=== PATIENT | male | born 1990 | race African-American/Black ===

== ENCOUNTER 2016-08-18 11:42 | Emergency (ER) | payer SELFPAY ==
[~2016-08-18] VITALS: Ht 167.6 cm; Wt 136.1 kg
[~2016-08-18 11:42] MED LIST: PRED50TA PO
[2016-08-18 11:55] VITALS: BP 160/89
[2016-08-18] MEDS ORDERED: HYDR-971 PO (12:21)
[2016-08-18] MEDS ORDERED: SULF1TAB24 PO (12:21)
--- NOTE | 2016-08-18 12:21 | PHYS DOC ---
Past Medical History Past Medical History: No Pertinent History Additional Past Medical Histor: obesity Past Surgical History: Other Additional Past Surgical Histo: plate left arm/wrist, mariluz in right leg Alcohol Use: Occasionally Drug Use: Marijuana Social History Narrative: PT REPORTS USING CODEINE Adult General Chief Complaint Chief Complaint: ABSCESS HPI HPI Patient is a 26 year old male presents emergency Department today with complaint of a painful, swollen area to his left buttock that is been progressive over the past 2-3 days. Patient states this is atraumatic in nature. Patient denies history of recurring skin infections. He denies antibiotic use within the past 90 days. Patient was here in April 2015 for an abscess. However, he denies recurrent skin infections. Patient denies fevers, chills, myalgias or arthralgias. Review of Systems Review of Systems Constitutional: Denies fever or chills [] Eyes: Denies change in visual acuity, redness, or eye pain [] HENT: Denies nasal congestion or sore throat [] Respiratory: Denies cough or shortness of breath [] Cardiovascular: No additional information not addressed in HPI [] GI: Denies abdominal pain, nausea, vomiting, bloody stools or diarrhea [] : Denies dysuria or hematuria [] Musculoskeletal: Denies back pain or joint pain [] Integument: Denies rash or skin lesions [] Neurologic: Denies headache, focal weakness or sensory changes [] Endocrine: Denies polyuria or polydipsia [] Current Medications Current Medications Current Medications Medications (Trade) Dose Ordered Sig/L[place]ty Start Time Stop Time Status Last Admin Dose Admin Acetaminophen/ Hydrocodone Bitart (Lortab 5/325) 1 tab 1X ONCE 08/18/16 12:30 08/18/16 12:31 DC 08/18/16 12:36 1 TAB Lidocaine/Sodium Bicarbonate (Buffered Lidocaine 1%) 20 ml 1X ONCE 08/18/16 12:30 08/18/16 12:31 DC 08/18/16 12:36 20 ML Allergies Allergies Allergies Coded Allergies Type Severity Reaction Last Updated Verified No Known Drug Allergies 05/19/15 No Physical Exam Physical Exam Constitutional: Well developed, well nourished, no acute distress, non-toxic appearance. [] HENT: Normocephalic, atraumatic, bilateral external ears normal, oropharynx moist, no oral exudates, nose normal. [] Eyes: PERRLA, EOMI, conjunctiva normal, no discharge. [] Neck: Normal range of motion, no tenderness, supple, no stridor. [] Cardiovascular:Heart rate regular rhythm, no murmur [] Lungs & Thorax: Bilateral breath sounds clear to auscultation [] Abdomen: Bowel sounds normal, soft, no tenderness, no masses, no pulsatile masses. [] Skin: Raised, erythematous, warm, indurated soft tissue at the superior aspect of the left gluteal cleft that extends to the presacral region. There is a small pinhole in the lower presacral region that is draining purulent material. The overlying skin shows hypertrophic hair follicles. This appearance is very consistent with a pilonidal abscess. Back: No tenderness, no CVA tenderness. [] Extremities: No tenderness, no cyanosis, no clubbing, ROM intact, no edema. [] Neurologic: Alert and oriented X 3, normal motor function, normal sensory function, no focal deficits noted. [] Psychologic: Affect normal, judgement normal, mood normal. [] Current Patient Data Vital Signs Vital Signs Date Time Temp Pulse Resp B/P Pulse Ox O2 Delivery O2 Flow Rate FiO2 08/18/16 12:36 Room Air 08/18/16 11:55 98.7 104 18 96 98.7 EKG EKG [] Radiology/Procedures Radiology/Procedures Procedure note: Abscess site was anesthetized with buffered 1% lidocaine. Site was prepped with Betadine solution. The abscess was incised with an 11 blade scalpel. There was immediate expression of copious amounts of foul-smelling mucopurulent material. The abscess was compressed until no further drainage was produced. Abscess was packed with quarter-inch iodoform packing. The abscess site was then dressed with a 4 x [address]. Patient tolerated the procedure well. Course & Med Decision Making Course & Med Decision Making Pertinent Labs and Imaging studies reviewed. (See chart for details) [] Dragon Disclaimer Dragon Disclaimer This electronic medical record was generated, in whole or in part, using a voice recognition dictation system. Departure Departure Impression: Primary Impression: Abscess Disposition: 01 HOME, SELF-CARE Condition: IMPROVED Referrals: NO PCP (PCP) Patient Instructions: Abscess, Care After, Abscess, [id number] Additional Instructions: 1. Take the packing out in 2 days while you are in the shower. Continue to keep the area covered with bandage material during periods of activity as it will continue to drain. 2. Take the medication as prescribed. 3. Review the discharge instructions provided for self-care and reasons to return to the emergency department. 4. Use the pamphlet provided for assistance in finding a primary care doctor in which you may follow up my Wednesday of this week for wound check. Scripts Hydrocodone/Apap 5-325 (Hickman 5-325 Tablet)1 Each Tablet1 Tab PO PRN Q6HRS PRN PAIN #10 TAB Prov:ANGEL MIGUEL 08/18/16 Sulfamethoxazole/Trimethoprim (Bactrim Ds Tablet)1 Each Tablet1 Each PO BID #20 TAB Prov:ANGEL MIGUEL 08/18/16 ANGEL MIGUEL August 18, 2016 12:21
[2016-08-18] MEDS ORDERED: LIDOCAINE 1% / SOD BICARB 8.4% 20 ML VIAL. IJ ONE (12:30)
[2016-08-18] MEDS ORDERED: HYDROcodone/APAP 5/325MG 1 TAB TABLET PO ONE (12:30)
== END 2016-08-18 13:10 | disposition home or self-care (01) ==
LOC: ER 11:42
DX: L05.01 Pilonidal cyst with abscess (principal); F12.10 Cannabis abuse, uncomplicated; E66.9 Obesity, unspecified; Z68.41 Body mass index [BMI] 40.0-44.9, adult
CPT/HCPCS: 10060; 10080; 99283-25

== ENCOUNTER 2017-05-14 07:03 | Emergency (ER) | payer SELFPAY ==
[2017-05-14] MEDS: LIDOCAINE WITH 8.4% SOD BICARB 3 ML DISP.SYRIN. INJ (07:23)
[2017-05-14] MEDS: HYDROcodone/APAP 5/325MG 1 TAB TABLET PO (07:24)
== END 2017-05-14 07:47 | disposition home or self-care (01) ==
LOC: ER 07:03
DX: L03.317 Cellulitis of buttock (principal); L02.31 Cutaneous abscess of buttock; E66.9 Obesity, unspecified; F12.10 Cannabis abuse, uncomplicated; Z68.41 Body mass index [BMI] 40.0-44.9, adult
CPT/HCPCS: 10060; 99283-25

== ENCOUNTER 2017-06-23 16:29 | Emergency (ER) | payer SELFPAY ==
[2017-06-23] MEDS: ACETAMINOPHEN 500 MG TABLET PO (17:45)
[2017-06-23] MEDS: ONDANSETRON ODT 4 MG TAB.RAPDIS. PO (17:46)
[2017-06-23 17:47] LABS: INFLUENZA A PATIENT NEGATIVE (NEGATIVE); INFLUENZA B PATIENT NEGATIVE (NEGATIVE); OBC FLU VALID
== END 2017-06-23 18:26 | disposition home or self-care (01) ==
LOC: ER 16:29
DX: R11.2 Nausea with vomiting, unspecified (principal); R19.7 Diarrhea, unspecified; E66.9 Obesity, unspecified; F12.10 Cannabis abuse, uncomplicated; Z68.41 Body mass index [BMI] 40.0-44.9, adult
CPT/HCPCS: 87804; 87804-59; 99284; Q0162